=== PATIENT | male | born 1965 | race Two or more races ===

== ENCOUNTER 2024-04-21 17:17 | Emergency (ER) | payer MEDICAID, OTHER ==
--- NOTE | 2024-04-21 17:25 | ED.PDOC ---
GI ASSESSMENT HPI Comments 58 year old male presents to the ED with chief complaint of abdominal pain. Patient reports that he has been experiencing epigastric abdominal pain with associated diarrhea for the past 3 days. Patient denies any nausea, vomiting, fever, hematemesis, dysuria, flank pain, or melena. Time Seen by MD: 17:22 Reviewed Notes: Nurses Notes, Medications, Allergies Allergies: Coded Allergies: NO KNOWN ALLERGIES (Unverified , 04/21/24) Home Meds Active Scripts Ondansetron Odt 4MG Tab (ZOFRAN PO) 4 Mg Tb, 4 MG PO Q8HP PRN for 5 Days, #15 TAB ODT TAB-DISSOLVE IN MOUTH, THEN SWALLOW Prov:ALLISON WU MD 04/21/24 Information Source: Patient Mode of Arrival: Ambulatory Timing: Days Duration: Since onset Prehospital treatment: None Quality: Aching Vomitus: None Stool: Watery Severity: Moderate Recent: None Recent Hx of: None Pain Location: Epigastric Modifying Factors: Nothing Associated sign and symptoms: Diarrhea, Abdominal Pain Past Medical History PAST MEDICAL HISTORY: Denies Surgical History: Denies all surgeries Family History Family History: Reviewed,noncontributory to illness Social History Smoker: Non-Smoker Alcohol: Occasionally Drugs: Denies Drug Use Lives In: Home Constitutional: denies: chills, diaphoresis, fatigue, fever, malaise, sweats, w eakness, others EENTM: denies: blurred vision, double vision, ear bleeding, ear discharge, ear drainage, ear pain, ear ringing, eye pain, eye redness, hearing loss, mouth pain, mouth swelling, nasal discharge, nose bleeding, nose congestion, nose pain, photophobia, tearing, throat pain, throat swelling, voice changes, others Respiratory: denies: cough, hemoptysis, orthopnea, SOB at rest, shortness of breath, SOB with excertion, stridor, wheezing, others Cardiovascular: denies: chest pain, dizzy spells, diaphoresis, Dyspnea on exertion, edema, irregular heart beat, left arm pain, lightheadedness, palpitations, PND, syncope, others Gastrointestinal: reports: abdominal pain, diarrhea; denies: abdomen distended, blood streaked bowels, constipated, dysphagia, difficulty swallowing, hematemesis, melena, nausea, poor appetite, poor fluid intake, rectal bleeding, rectal pain, vomiting, others Genitourinary: denies: burning, dysuria, flank pain, frequency, hematuria, incontinence, penile discharge, penile sore, pain, testicle pain, testicle swelling, urgency, others Neurological: denies: dizziness, fainting, headache, left sided numbness, left sided weakness, numbness, paresthesia, pre-existing deficit, right sided numbness, right sided weakness, seizure, speech problems, tingling, tremors, weakness, others Musculoskeletal: denies: back pain, gout, joint pain, joint swelling, muscle pain, muscle stiffness, neck pain, others Integumetry: denies: bruises, change in color, change in hair/nails, dryness, laceration, lesions, lumps, rash, wounds, others Allergic/Immunocompromised: denies: Difficulty Healing, Frequent Infections, Hives, Itching, others Hematologic/Lymphatic: denies: anemia, blood clots, easy bleeding, easy bruising, swollen glands, others Endocrine: denies: excessive hunger, excessive sweating, excessive thirst, excessive urination, flushing, intolerance to cold, intolerance to heat, unexplained weight gain, unexplained weight loss, others Psychiatric: denies: anxiety, bipolar disorder, depression, hopeless, panic disorder, schizophrenia, sleepless, suicidal, others All Other Systems: Reviewed and Negative Physical Exam General Appearance: No Apparent Distress HEENT: Normal ENT Inspection, Pharynx Normal, TMs Normal Neck: Full Range of Motion, Non-Tender, Normal, Normal Inspection Respiratory: Chest Non-Tender, Lungs Clear, No Accessory Muscle Use, No Respiratory Distress, Normal Breath Sounds Cardiovascular: No Edema, No JVD, No Murmur, No Gallop, Normal Peripheral Pulses, Regular Rate/Rhythm Breast Exam: Deferred Gastrointestinal: No Organomegaly, Non Tender, No Pulsatile Mass, Normal Bowel Sounds, Soft Genitalia: Deferred Pelvic: Deferred Rectal: Deferred Extremities: No calf tenderness, Normal capillary refill, Normal inspection, Normal range of motion, Non-tender, No pedal edema Musculoskeletal : Apperance: Normal 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 Was a procedure done?: No GI differential Dx Differential Diagnosis: Gastritis/PUD, Gastroenteritis, Electrolyte Imbalance, Food Poisoning X-Ray, Labs, Meds, VS Vital Signs Date Time Temp Pulse Resp B/P (MAP) Pulse Ox O2 Delivery O2 Flow Rate FiO2 04/21/24 17:17 97.9 64 20 133/87 (102) 97 Lab Test 04/21/24 17:43 04/21/24 17:30 Range/Units White Blood Count 4.3 L 4.4-10.8 10^3/uL Red Blood Count 4.73 4.5-5.90 10^6/uL Hemoglobin 16.2 13.5-17.5 g/dL Hematocrit 46.9 41.0-53.0 % Mean Corpuscular Volume 99.1 80.0-100.0 fL Mean Corpuscular Hemoglobin 34.3 H 28.0-32.0 pg Mean Corpuscular Hemoglobin Concent 34.6 32.0-36.0 g/dL Red Cell Distribution Width 13.2 11.8-14.3 % Platelet Count 211 140-450 10^3/uL Mean Platelet Volume 6.6 L 6.9-10.8 fL Neutrophils (%) (Auto) 39.1 37.0-80.0 % Lymphocytes (%) (Auto) 42.3 10.0-50.0 % Monocytes (%) (Auto) 13.2 H 0.0-12.0 % Eosinophils (%) (Auto) 4.5 0.0-7.0 % Basophils (%) (Auto) 0.9 0.0-2.0 % Neutrophils # (Auto) 1.7 1.6-8.6 10 ^3/uL Lymphocytes # (Auto) 1.8 0.4-5.4 10 ^3/uL Monocytes # (Auto) 0.6 0-1.3 10 ^3/uL Eosinophils # (Auto) 0.2 0-0.8 10 ^3/uL Basophils # (Auto) 0 0-0.2 10 ^3/uL Nucleated Red Blood Cells 0.3 % Sodium Level 138 136-145 mmol/L Potassium Level 3.5 3.5-5.1 mmol/L Chloride Level 101 98-107 mmol/L Carbon Dioxide Level 28 20-31 mmol/L Anion Gap 9 5-15 Blood Urea Nitrogen 10 9-23 mg/dL Creatinine 1.03 0.700-1.30 mg/dL Glomerular Filtration Rate Calc 85 >90 mL/min BUN/Creatinine Ratio 9.7 L 10.0-20.0 Serum Glucose 91 74-106 mg/dL Calcium Level 9.5 8.7-10.4 mg/dL Total Bilirubin Pending Aspartate Amino Transferase (AST) 50 H 13-40 U/L Alanine Aminotransferase (ALT) 69 H 7-40 U/L Alkaline Phosphatase 102 46-116 U/L Total Protein 7.1 5.7-8.2 g/dL Albumin 4.5 3.2-4.8 g/dL Urine Color Yellow Yellow Urine Clarity Clear Clear Urine pH 5.5 5.0-9.0 Urine Specific Loa 1.021 1.001-1.035 Urine Protein Negative Negative Urine Ketones Negative Negative Urine Blood Negative Negative /uL Urine Nitrite Negative Negative Urine Bilirubin Negative Negative Urine Urobilinogen Normal Negative mg/dL Urine Leukocyte Esterase Negative Negative /uL Urine RBC 1 0 - 3 /hpf Urine Microscopic WBC 1 0-3 /HPF Urine Squamous Epithelial Cells Few <5 /hpf Urine Bacteria None seen None Seen /hpf Urine Mucus Few None Seen Urine Glucose Normal Normal mg/dL CT Abd/Pel indicates: 1. No acute abdominal or pelvic findings. Punctate nonobstructive right renal calculus. Right renal cysts. Diffuse hepatic steatosis. The urine test is negative The CBC and chemistry panel are within normal limits The patient was being discharged The patient will follow up with the primary care doctor The patient was given a prescription of Zofran Images Reviewed?: Images reviewed and evaluated by me Time of 1ST Reevaluation: 18:56 Reevaluation 1ST: Unchanged Patient Education/Counseling: Diagnosis, Treatment Family Education/Counseling: Diagnosis, Treatment Additional Information -Reviewed patient's previous visit(s): None - The following tests were ordered, and results were reviewed by me: CT Abd/Pel, CBC, CMP, UA - Additional information was gathered from interviewing the following i parvinpendent Historian: None - I reviewed and agreed with the following test results read by other provider: CT Abd/Pel - I discussed treatments and results with medical personnel and: patient Comprehensive systems review obtained and negative except for what is stated in the HPI. Departure 1 Departure Time of Disposition: 18:55 Impression: Primary Impression: Viral syndrome Disposition: 01 HOME / SELF CARE / HOMELESS Condition: Fair e-Prescriptions Ondansetron Odt 4MG Tab (ZOFRAN PO) 4 Mg Tb 4 MG PO Q8HP PRN for 5 Days, #15 TAB ODT TAB-DISSOLVE IN MOUTH, THEN SWALLOW Prov: ALLISON WU MD 04/21/24 Discharged With: Self Critical Care Note Critical Care Time?: No Stability Stability form required: No Heart Score Heart Score: Heart Score Response (Comments) Value History N/A 0 EKG N/A 0 Age N/A 0 Risk Factors N/A 0 Troponin N/A 0 Total 0 I personally scribed for ALLISON WU MD ([email or web address]) on 04/21/24 at 17:25. Electronically submitted by Clark Bolaños ([email or web address]). I personally scribed for ALLISON WU MD ([email or web address]) on 04/21/24 at 18:35. Electronically submitted by Clark Bolaños ([email or web address]). ALLISON WU MD Apr 21, 2024 17:25
[2024-04-21 17:39] LABS: Urine Bacteria None Seen /hpf (None Seen)
[2024-04-21 17:54] LABS: Urine Blood Negative /uL (Negative); Urine Clarity Clear (Clear); Urine Color Yellow (Yellow); Urine Mucus FEW (None Seen); Urine Protein, UAD Negative (Negative); Urine Specific Gravity 1.021 (1.001-1.035); Urine Squamous Epithelial Cell FEW /hpf (<5); Urine Urobilinogen Normal (Negative); Urine WBC 1 /HPF (0-3); Urine pH 5.5 (5.0-9.0)
--- NOTE | 2024-04-21 17:56 | DVH ---
Exam: CT CT AB PEL WO CON-NO ORAL OR IV History: pain Comparison Study: None Technique: Multidetector spiral CT of the abdomen and pelvis was performed from lung bases to pubic symphysis. Imaging was performed without IV contrast. Axial, coronal and sagittal multiplanar reform ats were obtained from the axial data set by the technologist. Radiation dose : Abdomen/Pelvis: CTDIvol 17 mGy, DLP 1025 mGy*cm. Findings: Evaluation of solid organs is limited due to lack of intravenous contrast use. Lung Bases: No acute or significant lung base finding. Normal heart size. No pleural or pericardial effusion. Liver: Diffuse hepatic steatosis. Gallbladder and biliary Tree: Unremarkable Spleen: Unremarkable Pancreas: The pancreas is grossly normal in appearance. Adrenal Glands: Unremarkable Kidneys: Right renal cyst. Punctate right renal calculus. No hydronephrosis. Bladder: Grossly unremarkable for degree of distention. Bowel: The stomach is grossly normal in appearance. Small bowel and colon are normal in caliber and d istribution. Normal appendix is visualized in the right lower quadrant without findings of appendicit is. Ascites: Absent Lymphadenopathy: No mesenteric, retroperitoneal or periportal lymphadenopathy. Abdominal wall and Mesentery: Unremarkable. Vasculature: The visualized abdominal aorta is normal in size and caliber. Evaluation of abdominal a nd pelvic vessels is limited due to lack of intravenous contrast. Pelvic Organs: Unremarkable Musculoskeletal: No aggressive focal bony lesions, acute fractures or dislocation. IMPRESSION: 1. No acute abdominal or pelvic findings. Punctate nonobstructive right renal calculus. Right renal cysts. Diffuse hepatic steatosis. Radiation optimization: All CT scans at this facility use at least one of these dose optimization teagan hniques: Automated exposure control mA and/or kV adjustment per patient size (includes targeted exams where dose is matched to clinical indication) or iterative reconstruction. HS:Y
[2024-04-21 18:40] LABS: Basophils # (auto) 0 10 ^3/uL (0-0.2); Basophils % (auto) 0.9 % (0.0-2.0); Eosinophils # (auto) 0.2 10 ^3/uL (0-0.8); Eosinophils % (auto) 4.5 % (0.0-7.0); Hematocrit 46.9 % (41.0-53.0); Hemoglobin 16.2 g/dL (13.5-17.5); Lymphocytes # (auto) 1.8 10 ^3/uL (0.4-5.4); Lymphocytes % (auto) 42.3 % (10.0-50.0); Mean Corpuscular Hemoglobin 34.3 pg (28.0-32.0); Mean Corpuscular Hgb Conc. 34.6 g/dL (32.0-36.0); Mean Corpuscular Volume 99.1 fL (80.0-100.0); Monocytes # (auto) 0.6 10 ^3/uL (0-1.3); Monocytes % (auto) 13.2 % (0.0-12.0); Neutrophils # (auto) 1.7 10 ^3/uL (1.6-8.6); Neutrophils % (auto) 39.1 % (37.0-80.0); Nucleated Red Blood Cells % 0.3 %; Platelet Count (auto) 211 10^3/uL (140-450); Red Blood Cells 4.73 10^6/uL (4.5-5.90); Red Cell Distribution Width 13.2 % (11.8-14.3); White Blood Cell 4.3 10^3/uL (4.4-10.8)
[2024-04-21 18:54] LABS: Alanine Aminotransferase 69 U/L (7-40); Albumin 4.5 g/dL (3.2-4.8); Alkaline Phosphatase 102 U/L (46-116); Anion Gap 9 (5-15); Aspartate Aminotransferase 50 U/L (13-40); BUN/Creatinine Ratio 9.7 (10.0-20.0); Blood Urea Nitrogen 10 mg/dL (9-23); Calcium 9.5 mg/dL (8.7-10.4); Carbon Dioxide 28 mmol/L (20-31); Chloride 101 mmol/L (98-107); Glucose 91 mg/dL (74-106); Potassium 3.5 mmol/L (3.5-5.1); Sodium 138 mmol/L (136-145); Total Protein 7.1 g/dL (5.7-8.2)
[2024-04-21 18:55] LABS: Bilirubin, Total 0.6 mg/dL (0.2-1.0)
[2024-04-21] MEDS ORDERED: ZOFR4T PO (18:55)
[2024-04-21 19:42] VITALS: BP 132/71; TEMP 98.7
[2024-04-21 19:53] VITALS: PULSE 60; RESP 17; O2SAT 100
== END 2024-04-21 19:59 | disposition home or self-care (01) ==
LOC: ER 17:28
DX: B34.9 Viral infection, unspecified (principal)
CPT/HCPCS: 36415; 74176; 80053; 81001; 85025

== ENCOUNTER 2024-10-11 06:34 | Emergency (ER) | payer SELFPAY ==
[~2024-10-11] VITALS: Ht 167.6 cm; Wt 100.1 kg
[~2024-10-11 06:34] MED LIST: ZOFR4T PO
--- NOTE | 2024-10-11 07:29 | ED.PDOC ---
Miguel. trauma (HPI) HPI Comments 59 y/o M, with no prior medical history presents to the ED for CC of back pain. Patient states, he has been experiencing lower lumbar back pain following a trip and fall while carrying a door on Saturday (10/09/24). Patient reports, pain to be a 10/10 and to worsen with ambulation. Patient denies head injury, loss of consciousness, nausea, vomiting, or headache. No other symptoms or modifying factors are present at this time. Chief Complaint: Back Pain Time Seen by MD: 07:15 Primary Care Provider: NONE Reviewed notes: Nurses Notes, Medications, Allergies Allergies: Coded Allergies: NO KNOWN ALLERGIES (Unverified , 04/21/24) Home Meds Active Scripts Ondansetron Odt 4MG Tab (ZOFRAN PO) 4 Mg Tb, 4 MG PO Q8HP PRN for 5 Days, #15 TAB ODT TAB-DISSOLVE IN MOUTH, THEN SWALLOW Prov:ALLISON WU MD 04/21/24 Information Source: Patient Mode of Arrival: Ambulatory Severity: Moderate Timing: Days Duration: Since onset Prehospital treatment: None Location: Back Location of laceration: None Mechanism: Fall Associated signs and symtoms: None Past Medical History PAST MEDICAL HISTORY: Denies Surgical History: Denies all surgeries Family History Family History: Reviewed,noncontributory to illness Social History Smoker: Non-Smoker Alcohol: Occasionally Drugs: Denies Drug Use Lives In: Home Constitutional: denies: chills, diaphoresis, fatigue, fever, malaise, sweats, weakness, others EENTM: denies: blurred vision, double vision, ear bleeding, ear discharge, ear drainage, ear pain, ear ringing, eye pain, eye redness, hearing loss, mouth pain, mouth swelling, nasal discharge, nose bleeding, nose congestion, nose pain, photophobia, tearing, throat pain, throat swelling, voice changes, others Respiratory: denies: cough, hemoptysis, orthopnea, SOB at rest, shortness of breath, SOB with excertion, stridor, wheezing, others Cardiovascular: denies: chest pain, dizzy spells, diaphoresis, Dyspnea on exertion, edema, irregular heart beat, left arm pain, lightheadedness, palpit ations, PND, syncope, others Gastrointestinal: denies: abdomen distended, abdominal pain, blood streaked b owels, constipated, diarrhea, dysphagia, difficulty swallowing, hematemesis, melena, nausea, poor appetite, poor fluid intake, rectal bleeding, rectal pain, vomiting, others Genitourinary: denies: burning, dysuria, flank pain, frequency, hematuria, incontinence, penile discharge, penile sore, pain, testicle pain, testicle swelling, urgency, others Neurological: denies: dizziness, fainting, headache, left sided numbness, left sided weakness, numbness, paresthesia, pre-existing deficit, right sided numbness, right sided weakness, seizure, speech problems, tingling, tremors, weakness, others Musculoskeletal: reports: back pain; denies: gout, joint pain, joint swelling, muscle pain, muscle stiffness, neck pain, others Integumetry: denies: bruises, change in color, change in hair/nails, dryness, laceration, lesions, lumps, rash, wounds, others Allergic/Immunocompromised: denies: Difficulty Healing, Frequent Infections, Hives, Itching, others Hematologic/Lymphatic: denies: anemia, blood clots, easy bleeding, easy bruising, swollen glands, others Endocrine: denies: excessive hunger, excessive sweating, excessive thirst, excessive urination, flushing, intolerance to cold, intolerance to heat, unexplained weight gain, unexplained weight loss, others Psychiatric: denies: anxiety, bipolar disorder, depression, hopeless, panic di sorder, schizophrenia, sleepless, suicidal, others All Other Systems: Reviewed and Negative Physical Exam General Appearance: Moderate Distress HEENT: Normal ENT Inspection, Pharynx Normal, TMs Normal Neck: Full Range of Motion, Non-Tender, Normal, Normal Inspection Respiratory: Chest Non-Tender, Lungs Clear, No Accessory Muscle Use, No Respiratory Distress, Normal Breath Sounds Cardiovascular: No Edema, No JVD, No Murmur, No Gallop, Normal Peripheral Pulses, Regular Rate/Rhythm Breast Exam: Deferred Gastrointestinal: No Organomegaly, Non Tender, No Pulsatile Mass, Normal Bowel Sounds, Soft Genitalia: Deferred Pelvic: Deferred Rectal: Deferred Extremities: No calf tenderness, Normal capillary refill, Normal inspection, Normal range of motion, Non-tender, No pedal edema Musculoskeletal : Apperance: Normal 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 Was a procedure done?: No Differential Diagnosis Multiple Trauma: Fractures, Spine Injury, Other (musculoskeletal pain, strain) X-Ray, Labs, Meds, VS Vital Signs Date Time Temp Pulse Resp B/P (MAP) Pulse Ox O2 Delivery O2 Flow Rate FiO2 10/11/24 09:31 58 16 97 Room Air 10/11/24 09:31 97.9 58 16 138/82 (100) 98 97.9 10/11/24 06:47 98.4 63 18 135/91 94 98.4 Current Medications Medications (Trade) Dose Ordered Sig/Audrey Route Start Time Stop Time Status Last Admin Ketorolac Tromethamine (Toradol Injection) 60 mg ONCE ONCE IM 10/11/24 07:45 10/11/24 07:46 DC 10/11/24 07:49 Patient alert. Complaining of back pain. Happened after lifting heavy object. Vitals stable. Answering questions. Lumbar spine x-ray reviewed does not show any acute changes. Was given Toradol. Ambulating. Was given prescription of Motrin. Explained to the patient. Was told to follow up with his primary care physician. Was told to come back if there is any problem. Time of 1ST Reevaluation: 07:45 Reevaluation 1ST: Unchanged Patient Education/Counseling: Diagnosis, Treatment Family Education/Counseling: No Family Present Departure 1 Departure Time of Disposition: 09:35 Impression: Primary Impression: Musculoskeletal pain Additional Impression: Lumbar sprain Qualified Codes: S33.5XXA - Sprain of ligaments of lumbar spine, initial encounter Disposition: HOME / SELF CARE / HOMELESS Condition: Good e-Prescriptions Ibuprofen Micronized (MOTRIN TABLET) 600 Mg Tb 600 MG PO TID PRN for 5 Days, #15 TAB *Black box warning-NSAIDS can increase risk of HI & hypertension, GI irritation, ulceration, bleed, perferation. Do not use post cardiac surgery. Use short duration/lowest effective dose. Prov: DEEPAK WEBER MD 10/11/24 Discharged With: Self Critical Care Note Critical Care Time?: No Stability Stability form required: No Heart Score Heart Score: Heart Score Response (Comments) Value History N/A 0 EKG N/A 0 Age N/A 0 Risk Factors N/A 0 Troponin N/A 0 Total 0 I personally scribed for DEEPAK WEBER MD ([email or web address]) on 10/11/24 at 07:29. Electronically submitted by Penelope Theodore ([email or web address]). DEEPAK WEBER MD Oct 11, 2024 07:29
[2024-10-11] MEDS: KETOROLAC TROMETH 60MG/2ML VIAL IM ONE (07:49)
--- NOTE | 2024-10-11 09:19 | DVH ---
XY LUMBAR SPINE 3 VIEW, HISTORY: fall COMPARISON: None TECHNICAL DATA: Frontal and lateral views were obtained of the lumbar spine . FINDINGS: There are 5 lumbar type vertebral bodies. Lumbar curvature is within normal limits. There is no spond ylolisthesis. Vertebral body heights are maintained. Disk heights are narrow. The facet joints appear normal. The sacroiliac joints are symmetric. Paraspinal soft tissues are within normal limits. IMPRESSION: No acute fracture or dislocation of the lumbar spine.
[2024-10-11 09:31] VITALS: BP 138/82; PULSE 58; RESP 16; TEMP 97.9; O2SAT 97
[2024-10-11] MEDS ORDERED: IBU600T PO (09:36)
== END 2024-10-11 09:40 | disposition home or self-care (01) ==
LOC: ER 06:34
DX: S33.5XXA Sprain of ligaments of lumbar spine, initial encounter (principal); F10.90 Alcohol use, unspecified, uncomplicated; Z79.899 Other long term (current) drug therapy; W01.0XXA Fall on same level from slipping, tripping and stumbling without subsequent striking against object, initial encounter; Y93.89 Activity, other specified; Y92.89 Other specified places as the place of occurrence of the external cause; Y99.8 Other external cause status; Y90.9 Presence of alcohol in blood, level not specified
CPT/HCPCS: 72100; 96372; 99283; J1885

== ENCOUNTER 2024-12-06 23:05 | Emergency (ER) | payer MEDICAID, OTHER ==
[~2024-12-06] VITALS: Ht 167.6 cm; Wt 101.0 kg
[~2024-12-06 23:05] MED LIST changes: +IBU600T PO
--- NOTE | 2024-12-06 23:09 | ED.PDOC ---
History of Present Illness HPI Comments 59-year-old male who presents with chief complaint of nonradiating, periumbilical abdominal pain, nausea, vomiting, and chills. Patient rates pain at 10/10 in severity and reports no previous incident of similar symptoms in the past. No endorsed recent ailments, sick contact, travel, injuries, or further p ertinent history, with the exception of abdominal hernia surgery repair 2 years ago in [place], [place]. He denies having any bloody or bilious vomitus, diarrhea, constipation, urinary problems, or further acute symptoms at this time. REVIEW OF SYSTEMS: General: Chills, no fever, no fatigue HEENT: No sore throat, no earache, no congestion, no neck pain. Cardiac: No chest pain. No palpitations. Lungs: No shortness of breath, no cough. GI: Abdominal pain, nausea, vomiting, no diarrhea : No dysuria, frequency, or urgency. No hematuria. Musculoskeletal: No joint pain , no joint swelling, no extremity edema. Skin: No rash, no itching. Neuro: No headache, no dizziness, no weakness PHYSICAL EXAM: General: Awake, alert and oriented. No acute distress. Skin: Skin in warm, dry and intact. Appropriate color for ethnicity. HEENT: The head is normocephalic and atraumatic. Conjunctivae are clear without exudates or hemorrhage. Sclera is non-icteric. EOM are intact. No signs of nystagmus. Eyelids are normal in appearance without swelling or lesions. Oral mucosa is pink and moist Neck: The neck is supple with normal range of motion. No JVD. Cardiac: Heart rate and rhythm are normal. No murmurs, gallops, or rubs are auscultated. Respiratory: No signs of respiratory distress. Lung sounds are clear in all lobes bilaterally without rales, rhonchi, or wheezes. Abdominal: Draws abdominal tenderness, with distention. Abdomen is soft, no guarding or rigidity. Bowel sounds are present and normoactive in all four quadrants. Extremities: Upper and lower extremities are atraumatic in appearance without deformity or edema. Neurological: The patient is awake, alert and oriented to person, place, and time with normal speech. Speech is clear. There is no facial asymmetry. Psychiatric: Appropriate mood and affect. Good judgement and insight. Time Seen by MD: 23:10 Primary Care Provider: NONE Reviewed Notes: Nurses Notes, Medications, Allergies Allergies: Coded Allergies: NO KNOWN ALLERGIES (Unverified , 04/21/24) Home Meds Active Scripts Ibuprofen Micronized (MOTRIN TABLET) 600 Mg Tb, 600 MG PO TID PRN for 5 Days, #15 TAB *Black box warning-NSAIDS can increase risk of CT & hypertension, GI irritation, ulceration, bleed, perferation. Do not use post cardiac surgery. Use short duration/lowest effective dose. Prov:DEEPAK WEBER MD 10/11/24 Ondansetron Odt 4MG Tab (ZOFRAN PO) 4 Mg Tb, 4 MG PO Q8HP PRN for 5 Days, #15 TAB ODT TAB-DISSOLVE IN MOUTH, THEN SWALLOW Prov:ALLISON WU MD 04/21/24 Information Source: Patient Mode of Arrival: Ambulatory Severity: Moderate Timing: Hours Duration: Since onset Prehospital treatment: None Past Medical History PAST MEDICAL HISTORY: Denies Surgical History: Hernia Repair Family History Family History: Reviewed,noncontributory to illness Social History Smoker: Non-Smoker Alcohol: Occasionally Drugs: Denies Drug Use Lives In: Home Was a procedure done? Was a procedure done?: No Differential Dx Considerations may include: Differential diagnoses considered include: Abdominal aortic aneurysm, CT, esophageal rupture, intestinal obstruction, mesenteric ischemia, perforated viscus or solid organ rupture, CHF with hepatomegaly, pneumonia, abscess, appendicitis, biliary disease, diverticulitis, gastritis, gastroenteritis, hepatitis, hernia, inflammatory bowel disease, pancreatitis, peptic ulcer disease, urinary tract infection, ureteral colic, constipation, GERD, irritable syndrome, abdominal wall pain, nonspecific abdominal pain, herpes zoster, nephrolithiasis. X-Ray, Labs, Meds, VS Vital Signs Date Time Temp Pulse Resp B/P (MAP) Pulse Ox O2 Delivery O2 Flow Rate FiO2 12/07/24 02:37 64 18 124/79 (94) 94 12/07/24 01:32 66 16 136/91 12/07/24 01:15 98.3 66 16 136/91 (106) 97 98.3 12/06/24 23:17 74 12/06/24 23:07 99.0 76 20 122/90 89 99.0 Lab Test 12/07/24 02:42 12/07/24 01:01 12/07/24 00:22 12/07/24 00:01 Range/Units Lactic Acid Level Pending Troponin I High Sensitivity Pending 3 L </=54 ng/L Urine Color Light-yellow Yellow Urine Clarity Clear Clear Urine pH 8.5 5.0-9.0 Urine Specific [place] > 1.050 H 1.001-1.035 Urine Protein 1+ H Negative Urine Ketones Negative Negative Urine Blood Negative Negative /uL Urine Nitrite Negative Negative Urine Bilirubin Negative Negative Urine Urobilinogen Normal Negative mg/dL Urine Leukocyte Esterase Negative Negative /uL Urine RBC <1 0 - 3 /hpf Urine Microscopic WBC Pending Urine Squamous Epithelial Cells None seen <5 /hpf Urine Bacteria None seen None Seen /hpf Urine Glucose Normal Normal mg/dL Total Bilirubin 0.4 0.2-1.0 mg/dL Direct Bilirubin Pending Aspartate Amino Transferase (AST) 38 13-40 U/L Alanine Aminotransferase (ALT) 51 H 7-40 U/L Alkaline Phosphatase 123 H 46-116 U/L Total Protein 7.6 5.7-8.2 g/dL Albumin 4.5 3.2-4.8 g/dL Lipase 36 12-53 U/L Blood Gas Specimen Type Arterial Blood Gas Sample Site Right radial Blood Gas Patient Temperature 37.0 Arterial Blood Date Drawn [id number] Arterial Blood pH 7.441 7.350-7.450 Arterial Blood Partial Pressure CO2 38.3 35.0-48.0 mmHg Arterial Blood Partial Pressure O2 65.6 L 83.0-108.0 mmHg Arterial Blood HCO3 25.5 21.0-28.0 mmol/L Arterial Blood Oxygen Saturation 92.8 L 94.0-98.0 % Arterial Blood Base Excess 1.5 -2.0-3.0 mmol/L Arterial Blood Oxyhemoglobin 91.7 L 94.0-98.0 % Arterial Blood Carboxyhemoglobin 0.7 0.5-1.5 % Arterial Blood Methemoglobin 0.5 0.0-1.5 % Kunal Test Yes Blood Gas Total Hemoglobin 17.60 H 13.5-17.5 g/dL Blood Gas Liter Flow 1.00 Blood Gas Modality Nasal cannula Blood Gas Spontaneous Rate 22 FiO2 % 24.0 Test 12/06/24 23:47 Range/Units White Blood Count 6.8 4.4-10.8 10^3/uL Red Blood Count 5.04 4.5-5.90 10^6/uL Hemoglobin 17.4 13.5-17.5 g/dL Hematocrit 49.8 41.0-53.0 % Mean Corpuscular Volume 98.8 80.0-100.0 fL Mean Corpuscular Hemoglobin 34.5 H 28.0-32.0 pg Mean Corpuscular Hemoglobin Concent 34.9 32.0-36.0 g/dL Red Cell Distribution Width 13.4 11.8-14.3 % Platelet Count 263 140-450 10^3/uL Mean Platelet Volume 6.6 L 6.9-10.8 fL Neutrophils (%) (Auto) 47.0 37.0-80.0 % Lymphocytes (%) (Auto) 39.0 10.0-50.0 % Monocytes (%) (Auto) 7.7 0.0-12.0 % Eosinophils (%) (Auto) 5.2 0.0-7.0 % Basophils (%) (Auto) 1.1 0.0-2.0 % Neutrophils # (Auto) 3.2 1.6-8.6 10 ^3/uL Lymphocytes # (Auto) 2.6 0.4-5.4 10 ^3/uL Monocytes # (Auto) 0.5 0-1.3 10 ^3/uL Eosinophils # (Auto) 0.4 0-0.8 10 ^3/uL Basophils # (Auto) 0.1 0-0.2 10 ^3/uL Nucleated Red Blood Cells 0.1 % Sodium Level 141 136-145 mmol/L Potassium Level 3.9 3.5-5.1 mmol/L Chloride Level 101 98-107 mmol/L Carbon Dioxide Level 29 20-31 mmol/L Anion Gap 11 5-15 Blood Urea Nitrogen 13 9-23 mg/dL Creatinine 0.93 0.700-1.30 mg/dL Glomerular Filtration Rate Calc 96 >90 mL/min BUN/Creatinine Ratio 14.0 10.0-20.0 Serum Glucose 110 H 74-106 mg/dL Calcium Level 9.6 8.7-10.4 mg/dL Troponin I High Sensitivity 4 </=54 ng/L Current Medications Medications (Trade) Dose Ordered Sig/Audrey Route Start Time Stop Time Status Last Admin Hydromorphone HCl (Dilaudid Injection) 0.5 mg ONCE ONCE IV 12/07/24 01:15 12/07/24 01:16 DC 12/07/24 01:32 Ondansetron HCl (Zofran) 4 mg ONCE ONCE IV 12/07/24 01:15 12/07/24 01:16 DC 12/07/24 01:[address] [address] Ph: [phone] DIAGNOSTIC IMAGING Diagnostic Imaging Report : [id number] Signed PATIENT: JAJA CUEVAS ACCT: [id number] UNIT: [id number] : 1965 LOC: ER ROOM / BED: / AGE / SEX: 59 / M ADM STATUS: REG ER SERVICE 21 ORDERING PHYSICIAN: ROCIO SALEH MD PROCEDURE(s): CXR1 - CHEST XRAY 1 VIEW REASON: Shortness of breath, abdominal pain ORDER NUMBER(s): [id number], ACCESSION NUMBER(s): [id number] CHEST RADIOGRAPH Indication: Shortness of breath, abdominal pain Technique: 1 view Comparison: None FINDINGS: Lines and Tubes: None. Lungs/Pleura: Mild basilar scarring/atelectasis. No focal consolidation, pleural effusion or pneumothorax. Cardiomediastinum: Heart size within normal limits for technique. Other: No acute osseous abnormality. IMPRESSION: 1. No acute cardiopulmonary abnormality. ATED BY: EMELI TORRES MD DICTATED DATE/TIME: 12/06/242345 SIGNED BY: EMELI TORRES MD SIGNED DATE/TIME: 12/06/242345 CC: Time of 1ST Reevaluation: 23:08 Reevaluation 1ST: Unchanged Patient Education/Counseling: Need For Follow Up Family Education/Counseling: No Family Present SEPSIS Sepsis Screen Physician Orders Electrocardigram (12/06/24 23:15) Chest Xray 1 View (12/06/24 23:22) Troponin-I Hs (12/07/24 02:22) Abg W/ Co-Ox (12/06/24 23:22) Lactic Acid W/ Reflex Order (12/07/24 01:01) Lipase (12/07/24 01:01) Urinalysis (12/07/24 01:01) Hepatic Panel (12/07/24 01:01) Ct Ab Pel With Iv Con Only (12/07/24 02:04) Vital Signs Date Time Temp Pulse Resp B/P (MAP) Pulse Ox O2 Delivery O2 Flow Rate FiO2 12/07/24 02:37 64 18 124/79 (94) 94 12/07/24 01:32 66 16 136/91 12/07/24 01:15 98.3 66 16 136/91 (106) 97 98.3 12/06/24 23:17 74 12/06/24 23:07 99.0 76 20 122/90 89 99.0 Laboratory Tests Test 12/06/24 23:47 12/07/24 02:42 White Blood Count 6.8 10^3/uL (4.4-10.8) Lactic Acid Level Pending Medications Medications Dose Ordered Sig/Audrey Route Start Time Stop Time Status Last Admin Dose Admin Hydromorphone HCl 0.5 mg ONCE ONCE IV 12/07/24 01:15 12/07/24 01:16 DC 12/07/24 01:32 Ondansetron HCl 4 mg ONCE ONCE IV 12/07/24 01:15 12/07/24 01:16 DC 12/07/24 01:33 Departure 1 Departure Time of Disposition: 03:35 Impression: Primary Impression: Abdominal pain Disposition: HOME / SELF CARE / HOMELESS Condition: Stable Additional Instructions: INSTRUCCIONES DE BRANDI DE Urgencias Instrucciones: Francisca atentamente todas las instrucciones proporcionadas en r[place]. Aunque le hayan dado el brandi del Departamento de Emergencias, esto no significa que tenga un "certificado de buena carlos". [] Hoy no se de guzman realizado ningn diagnstico definitivo para keyanna sntomas. Es posible que ests en proceso de desarrollar karen enfermedad grave. Es por eso que debe regresar al servicio de urgencias sin falta si presenta algn sntoma nuevo o que empeora (especialmente si keyanna sntomas incluyen dolor en el pecho, dificultad para respirar, dolor abdominal, fiebre, dolor de yoni, confusin, dificultad para reanna o caminar). Sherice es muy importante que consulte a un mdico de atencin primaria dentro de los prximos 1 a 3 torres para realizar un seguimiento. Si no puede conseguir karen reyna, regrese al servicio de urgencias para karen nueva evaluacin. Gastroenteritis: Instrucciones de cuidado Descripcin general La gastroenteritis es karen enfermedad que puede causar nuseas, vmitos y diarrea. Puede ser causada por bacterias o virus. Probablemente empezar a sentirse mejor en kristyn o dos torres. Mientras tanto, descanse judy y asegrese de no deshidratarse. La deshidratacin ocurre cuando el cuerpo pierde demasiado lquido. El seguimiento es fundamental para reyes tratamiento y seguridad. Asegrese de programar y acudir a todas keyanna citas, y llame a reyes mdico si tiene algn problema. Tambin es recomendable estar al tanto de los resultados de keyanna pruebas y llevar karen lista de los medicamentos que valdo. Foreign Agent puedes cuidarte en casa? Si reyes mdico le recet antibiticos, tmelos segn las indicaciones. No los deje de meg solo porque se sienta mejor. Debe completar el tratamiento con antibiticos. Thalia abundante lquido para prevenir la deshidratacin. Elija agua y otros lqui dos lilliana hasta que se sienta mejor. Si padece alguna enfermedad renal, cardaca o heptica y debe limitar reyes consumo de lquidos, consulte a reyes mdico antes de aumentarlo. Thalia lquidos lentamente, en pequeas cantidades y con frecuencia, porque beber demasiado demasiado rpido puede provocar vmitos. Cuando tenga ganas de comer, empiece con pequeas cantidades. Evite las comidas picantes, calientes o con donnell grasa, y no thalia alcohol ni cafena nikhil kristyn o dos torres. No thalia leche ni coma helado hasta que se sienta mejor. Foreign Agent prevenir la intoxicacin alimentaria Mantenga keyanna melva y reyes cocina limpias. Lave las tablas de cortar y las encimeras frecuentemente con [place] y jabn. Considere usar aerosoles o toallitas desinfectantes en las encimeras. Mantenga calientes los alimentos calientes y fros los alimentos fros. No coma peri, aderezos, ensaladas u otros alimentos que hayan estado a temperatura ambiente nikhil ms de 2 horas. Use un termmetro para revisar reyes refrigerador. Debe estar entre 1 C y 4 C. Descongele las peri en el refrigerador o en el microondas, no en la encimera de la cocina. Cocine la carne hasta que est judy cocida. No coma huevos crudos ni salsas crudas elaboradas con huevos crudos. No te arriesgues. Si la comida parece o sabe en mal estado, trala. Tenga mucho cuidado al viajar. En algunos lugares, es posible que no quiera beber agua del grifo (ni siquiera cubitos de hielo) ni comer alimentos crudos. Cundo debes pedir ayuda? Llame al 911 en cualquier momento que considere que necesita atencin de emergencia. Por ejemplo, llame si: Te desmayaste (perdiste el conocimiento). Tienes un dolor intenso en el vientre. Vomitas uri o lo que parecen posos de caf. Keyanna heces son de color marrn o con donnell uri. Llame a reyes mdico ahora o busque atencin mdica inmediata si: Se siente mareado o aturdido, o scarlet si se pudiera desmayar. Tiene dificultad para respirar o respira ms rpido y orina muy poco. Tienes un dolor abdominal nuevo o peor. Tiene fiebre nueva o ms brandi. Tiene signos de deshidratacin, scarlet: Ojos secos y boca seca. Pasando slo un poco de orina. Sentir ms sed de lo habitual. Tiene nuseas o vmitos y no puede retener lquidos. No puede evacuar heces ni gases. Tiene uri nueva o ms uri en keyanna heces o keyanna heces son negras y con aspecto de alquitrn. Preste atencin a los cambios en reyes carlos y asegrese de comunicarse con reyes mdi co si: Tiene sntomas nuevos o peores. Ests perdiendo peso. No mejoras scarlet esperabas Crditos para la gastroenteritis: Instrucciones de cuidado Actualizado al: 2023 Autor: Personal de [facility] Junta de revisin clnica Toda la educacin de [facility] es revisada por un equipo que incluye mdicos, enfermeras, profesionales avanzados, dietistas registrados y otros profesionales de la carlos. Dieta blanda Alimentos que puedes comer Los alimentos que puedes comer en karen dieta blanda incluyen: Leche y otros productos lcteos, solo bajos en grasa o sin grasa Verduras cocidas, enlatadas o congeladas Ellie Frutas enlatadas, as scarlet pur de manzana, pltanos y melones. Jugos de frutas y jugos de vegetales (algunas personas, scarlet aquellas con ERGE, podran querer evitar los ctricos y el tomate) Panes, galletas y pastas elaborados con harina monique refinada Cereales refinados y calientes, scarlet la crema de william (cereal de harina) Peri magras y tiernas, scarlet aves, pescado martinez y mariscos que se cocinan al vapor, al horno o a la daniela sin grasa agregada. Mantequilla de man cremosa Pudn y natillas Galletas Ej y obleas de vainilla [place] y gelatina Huevos Tofu Sopa, especialmente caldo T dbil Alimentos que se deben evitar Algunos alimentos que quizs quieras evitar cuando ests siguiendo karen dieta blanda son: Alimentos lcteos grasos, scarlet crema batida o helado con alto contenido de grasa Quesos joel, scarlet el queso xavier o el roquefort Verduras crudas y ensaladas Verduras que pueden producir gases, scarlet el brcoli, el repollo y la coliflor. Lita secos Cereales integrales o de salvado Panes, galletas o pastas integrales Encurtidos, chucrut y otros alimentos fermentados Especias y condimentos joel, scarlet el pimiento picante y el ajo. Alimentos con mucho azcar Semillas y lita secos Peri y pescados muy condimentados, curados o ahumados Peri duras y fibrosas Alimentos fritos o grasosos Bebidas alcohlicas y bebidas con cafena. e-Prescriptions Ondansetron Odt 4MG Tab (ZOFRAN PO) 4 Mg Tb 4 MG PO TIDPRN PRN for 3 Days, #9 TAB ODT TAB-DISSOLVE IN MOUTH, THEN SWALLOW Prov: ROCIO SALEH MD 12/07/24 Comments MDM: 59-year-old male with abdominal pain. Pain improved after treatment in the emergency department. Labs and imaging results reviewed. Patient was offered admission for further treatment, observation and evaluation. Discussed risks, benefits and return precautions with the patient. The patient is declined admission and is requesting to be discharged home to follow up with the primary care provider as an outpatient. Extensive evaluation was performed in attempt to identify or rule out: (See differential diagnosis section) The following tests were ordered, and results were reviewed by me and discussed with patient: (See diagnostic results section) And agreed with the following test results read by other providers: Chest x-ray I reviewed the following notes from the pt's past medical encounters: October 11, 2024 encounter for back pain Decision regarding hospitalization or escalation of hospital level of care: Risks and benefits of admission for further treatment of patient's condition was considered however due to patient's stable condition patient will be discharged to follow up closely or return to care for worsening of condition or inability to follow up. Critical Care Note Critical Care Time?: No Stability Stability form required: No Heart Score Heart Score: Heart Score Response (Comments) Value History N/A 0 EKG N/A 0 Age N/A 0 Risk Factors N/A 0 Troponin N/A 0 Total 0 I personally scribed for ROCIO SALEH MD ([email or web address]) on 12/07/24 at 01:28. Electronically submitted by Sai Enciso ([email or web address]). ROCIO SALEH MD Dec 06, 2024 23:09
--- NOTE | 2024-12-06 23:48 | DVH ---
CHEST RADIOGRAPH Indication: Shortness of breath, abdominal pain Technique: 1 view Comparison: None FINDINGS: Lines and Tubes: None. Lungs/Pleura: Mild basilar scarring/atelectasis. No focal consolidation, pleural effusion or pneumoth orax. Cardiomediastinum: Heart size within normal limits for technique. Other: No acute osseous abnormality. IMPRESSION: 1. No acute cardiopulmonary abnormality.
[2024-12-07 00:11] LABS: Hemoglobin 17.4 g/dL (13.5-17.5)
[2024-12-07 00:12] LABS: Hematocrit 49.8 % (41.0-53.0); Mean Corpuscular Hemoglobin 34.5 pg (28.0-32.0); Mean Corpuscular Volume 98.8 fL (80.0-100.0); Nucleated Red Blood Cells % 0.1 %
[2024-12-07 00:17] LABS: Base Excess 1.5 mmol/L (-2.0-3.0)
[2024-12-07 00:18] LABS: Chloride 101 mmol/L (98-107); Potassium 3.9 mmol/L (3.5-5.1); Sodium 141 mmol/L (136-145)
[2024-12-07 00:19] LABS: Anion Gap 11 (5-15); Carbon Dioxide 29 mmol/L (20-31)
[2024-12-07 00:20] LABS: Calcium 9.6 mg/dL (8.7-10.4)
[2024-12-07 00:25] LABS: BUN/Creatinine Ratio 14.0 (10.0-20.0); Blood Urea Nitrogen 13 mg/dL (9-23)
[2024-12-07 00:26] LABS: Glucose 110 mg/dL (74-106)
[2024-12-07 01:15] VITALS: TEMP 98.3
[2024-12-07] MEDS: HYDROmorphone HCL 2 MG/ML VL/or syr IV ONE (01:32)
[2024-12-07] MEDS: ONDANSETRON HCL 4 MG/2 ML VIAL IV ONE (01:33)
[2024-12-07 01:50] LABS: Alanine Aminotransferase 51.0 U/L (7-40); Albumin 4.5 g/dL (3.2-4.8); Alkaline Phosphatase 123.0 U/L (46-116); Bilirubin, Total 0.4 mg/dL (0.2-1.0); Lipase 36.0 U/L (12-53); Total Protein 7.6 g/dL (5.7-8.2)
[2024-12-07] MEDS: IOHEXOL 300 MG/ML 100ML BOTTLE IJ ONE (02:15)
[2024-12-07 02:37] VITALS: O2SAT 94
--- NOTE | 2024-12-07 02:57 | DVH ---
Exam: CT CT AB PEL WITH IV CON ONLY History: abd pain , n/v COMPARISON: CT CT AB PEL WO CON-NO ORAL OR IV on DOS: 04/21/24 Technique: Multidetector spiral CT of the abdomen and pelvis was performed from lung bases to pubic s ymphysis. Intravenous contrast was administered during this examination. Portal venous imaging was o btained. Axial, coronal and sagittal multiplanar reformats were performed by the technologist on a [employer] workstation. Radiation Dose : 1. Abdomen/Pelvis: CTDIvol 22.3 mGy, DLP 1282.48 mGy*cm. CONTRAST: Type of contrast: Omnipaque 300 Contrast injected: 100 ml Findings: Lung Bases: No acute or significant lung base finding. Moderate bibasilar atelectasis. Cardiomegaly. No pleural or pericardial effusion. Liver: The liver is normal in size. Hepatic steatosis. No focal lesions. Normal hepatic vascular enha ncement. Gallbladder and Biliary Tree: Unremarkable Spleen: Unremarkable Pancreas: The pancreas is normal in appearance without focal lesions or abnormal enhancement. Adrenal Glands: Unremarkable Kidneys: No hydronephrosis. Right superior pole renal cortical cyst measures 3.6 cm. Bladder: Unremarkable Bowel: The stomach is distended and predominantly fluid-filled with air-fluid level noted. Moderately dilated fluid and gas-filled small bowel segments with associated air-fluid levels and mild diffuse wall thickening and enhancement, suggestive of sequelae of enteritis.. The appendix is normal. Ascites: Absent Lymphadenopathy: No mesenteric, retroperitoneal or periportal lymphadenopathy. Abdominal Wall and Mesentery: Unremarkable. Vasculature: The visualized abdominal aorta is normal in size and caliber. Abdominal and pelvic vess els demonstrate normal enhancement. Pelvic Organs: Unremarkable Musculoskeletal: No aggressive focal bony lesions, acute fractures or dislocation. IMPRESSION: 1. Moderately dilated fluid and gas-filled small bowel segments with associated air-fluid levels and mild diffuse wall thickening and enhancement, suggestive of sequelae of enteritis. 2. Hepatic steatosis. 3. Nonspecific gastric distention. 4. Cardiomegaly. Radiation optimization: All CT scans at this facility use at least one of these dose optimization teagan hniques: automated exposure control mA and/or kV adjustment per patient size (includes targeted exam s where dose is matched to clinical indication) or iterative reconstruction.
[2024-12-07 03:11] LABS: Urine Protein, UAD 1+ (Negative)
[2024-12-07 03:14] LABS: Bilirubin, Direct 0.1 mg/dL (<0.3)
[2024-12-07 03:33] VITALS: BP 124/79; PULSE 66; RESP 16
[2024-12-07] MEDS ORDERED: ZOFR4T PO (03:34)
--- NOTE | 2024-12-07 06:50 | ECG ---
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
== END 2024-12-07 03:45 | disposition home or self-care (01) ==
LOC: ER 23:05
DX: R10.33 Periumbilical pain (principal); F10.90 Alcohol use, unspecified, uncomplicated; Z79.899 Other long term (current) drug therapy; Z98.890 Other specified postprocedural states; Y90.9 Presence of alcohol in blood, level not specified
CPT/HCPCS: 36415; 36600; 71045; 74177; 80048; 80076; 81001; 82805; 83605; 83690; 84484; 85025; 93005; 96374; 96375; 99285; J1171; J2405; Q9967

== ENCOUNTER 2024-12-07 07:44 | Inpatient (IN) | payer MEDICAID, OTHER ==
[~2024-12-07] VITALS: Ht 167.6 cm; Wt 98.8 kg
[2024-12-07] MEDS: SODIUM CHLORIDE 0.9% 1,000 ML IVB ONE (08:25)
[2024-12-07 08:35] LABS: Hematocrit 49.3 % (41.0-53.0); Hemoglobin 16.8 g/dL (13.5-17.5); Mean Corpuscular Hemoglobin 33.8 pg (28.0-32.0); Mean Corpuscular Volume 99.0 fL (80.0-100.0); Nucleated Red Blood Cells % 0.1 %
--- NOTE | 2024-12-07 08:48 | ED.PDOC ---
GI ASSESSMENT HPI Comments 59 year old male presents to the ED with a chief complaint of abdominal pain onset last night. Patient was discharged from this ED earlier today, diagnosed with gastroenteritis. Patient states pain has not resolved, went home, pain worsened, returned to ED. He is currently experiencing abdominal pain, nausea, vomiting, and chills. Denies fever, headache, dizziness, chest pain, shortness of breath, hematemesis, dysuria, hematuria, melena, blood in stool. No other symptoms or modifying factors present at this time. Chief Complaint: Abdominal Pain Time Seen by MD: 08:35 Primary Care Provider: NONE Reviewed Notes: Medications, Allergies Allergies: Coded Allergies: NO KNOWN ALLERGIES (Unverified , 04/21/24) Home Meds Active Scripts Ondansetron Odt 4MG Tab (ZOFRAN PO) 4 Mg Tb, 4 MG PO TIDPRN PRN for 3 Days, #9 TAB ODT TAB-DISSOLVE IN MOUTH, THEN SWALLOW Prov:ROCIO SALEH MD 12/07/24 Ibuprofen Micronized (MOTRIN TABLET) 600 Mg Tb, 600 MG PO TID PRN for 5 Days, #15 TAB *Black box warning-NSAIDS can increase risk of MA & hypertension, GI irritation, ulceration, bleed, perferation. Do not use post cardiac surgery. Use short duration/lowest effective dose. Prov:DEEPAK WEBER MD 10/11/24 Ondansetron Odt 4MG Tab (ZOFRAN PO) 4 Mg Tb, 4 MG PO Q8HP PRN for 5 Days, #15 TAB ODT TAB-DISSOLVE IN MOUTH, THEN SWALLOW Prov:ALLISON WU MD 04/21/24 Information Source: Patient, Spouse Mode of Arrival: Ambulatory Timing: Hours Duration: Since onset Prehospital treatment: None Quality: Sharp Severity: Moderate Recent: None Recent Hx of: None Pain Location: Diffuse Modifying Factors: Nothing Associated sign and symptoms: Nausea, Vomiting, Abdominal Pain Past Medical History PAST MEDICAL HISTORY: Denies Surgical History: Hernia Repair Family History Family History: Reviewed,noncontributory to illness Social History Smoker: Non-Smoker Alcohol: Occasionally Drugs: Denies Drug Use Lives In: Home Constitutional: denies: chills, diaphoresis, fatigue, fever, malaise, sweats, weakness, others EENTM: denies: blurred vision, double vision, ear bleeding, ear discharge, ear drainage, ear pain, ear ringing, eye pain, eye redness, hearing loss, mouth pain, mouth swelling, nasal discharge, nose bleeding, nose congestion, nose pain, photophobia, tearing, throat pain, throat swelling, voice changes, others Respiratory: denies: cough, hemoptysis, orthopnea, SOB at rest, shortness of breath, SOB with excertion, stridor, wheezing, others Cardiovascular: denies: chest pain, dizzy spells, diaphoresis, Dyspnea on exertion, edema, irregular heart beat, left arm pain, lightheadedness, palpitations, PND, syncope, others Gastrointestinal: reports: abdominal pain, nausea, vomiting; denies: abdomen distended, blood streaked bowels, constipated, diarrhea, dysphagia, difficulty swallowing, hematemesis, melena, poor appetite, poor fluid intake, rectal bleeding, rectal pain, others Genitourinary: denies: burning, dysuria, flank pain, frequency, hematuria, incontinence, penile discharge, penile sore, pain, testicle pain, testicle swelling, urgency, others Neurological: denies: dizziness, fainting, headache, left sided numbness, left sided weakness, numbness, paresthesia, pre-existing deficit, right sided numbness, right sided weakness, seizure, speech problems, tingling, tremors, weakness, others Musculoskeletal: denies: back pain, gout, joint pain, joint swelling, muscle pain, muscle stiffness, neck pain, others Integumetry: denies: bruises, change in color, change in hair/nails, dryness, laceration, lesions, lumps, rash, wounds, others Allergic/Immunocompromised: denies: Difficulty Healing, Frequent Infections, Hives, Itching, others Hematologic/Lymphatic: denies: anemia, blood clots, easy bleeding, easy bruising, swollen glands, others Endocrine: denies: excessive hunger, excessive sweating, excessive thirst, excessive urination, flushing, intolerance to cold, intolerance to heat, unexplained weight gain, unexplained weight loss, others Psychiatric: denies: anxiety, bipolar disorder, depression, hopeless, panic disorder, schizophrenia, sleepless, suicidal, others All Other Systems: Reviewed and Negative Physical Exam General Appearance: Moderate Distress, Normal HEENT: Normal ENT Inspection, Pharynx Normal, TMs Normal Neck: Full Range of Motion, Non-Tender, Normal, Normal Inspection Respiratory: Chest Non-Tender, Lungs Clear, No Accessory Muscle Use, No Respiratory Distress, Normal Breath Sounds Cardiovascular: No Edema, No JVD, No Murmur, No Gallop, Normal Peripheral Pulses, Regular Rate/Rhythm Breast Exam: Deferred Gastrointestinal: Diffuse, No Organomegaly, No Pulsatile Mass, Normal Bowel Sounds, Soft Genitalia: Deferred Pelvic: Deferred Rectal: Deferred Extremities: No calf tenderness, Normal capillary refill, Normal inspection, Normal range of motion, Non-tender, No pedal edema Musculoskeletal : Apperance: Normal Neurologic: Alert, 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 Was a procedure done?: No GI differential Dx Differential Diagnosis: Constipation, Diverticular disease, Esophagitis, Gastritis/PUD, Gastroenteritis X-Ray, Labs, Meds, VS Vital Signs Date Time Temp Pulse Resp B/P (MAP) Pulse Ox O2 Delivery O2 Flow Rate FiO2 12/07/24 07:47 97.8 63 19 147/86 95 97.8 Lab Test 12/07/24 08:14 Range/Units White Blood Count 7.7 4.4-10.8 10^3/uL Red Blood Count 4.98 4.5-5.90 10^6/uL Hemoglobin 16.8 13.5-17.5 g/dL Hematocrit 49.3 41.0-53.0 % Mean Corpuscular Volume 99.0 80.0-100.0 fL Mean Corpuscular Hemoglobin 33.8 H 28.0-32.0 pg Mean Corpuscular Hemoglobin Concent 34.1 32.0-36.0 g/dL Red Cell Distribution Width 13.3 11.8-14.3 % Platelet Count 246 140-450 10^3/uL Mean Platelet Volume 6.5 L 6.9-10.8 fL Neutrophils (%) (Auto) 77.9 37.0-80.0 % Lymphocytes (%) (Auto) 16.9 10.0-50.0 % Monocytes (%) (Auto) 4.4 0.0-12.0 % Eosinophils (%) (Auto) 0.2 0.0-7.0 % Basophils (%) (Auto) 0.6 0.0-2.0 % Neutrophils # (Auto) 6.0 1.6-8.6 10 ^3/uL Lymphocytes # (Auto) 1.3 0.4-5.4 10 ^3/uL Monocytes # (Auto) 0.3 0-1.3 10 ^3/uL Eosinophils # (Auto) 0 0-0.8 10 ^3/uL Basophils # (Auto) 0 0-0.2 10 ^3/uL Nucleated Red Blood Cells 0.1 % Current Medications Medications (Trade) Dose Ordered Sig/Audrey Route Start Time Stop Time Status Last Admin Sodium Chloride 1,000 ml @ 1,000 mls/hr Q1H ONCE IVB 12/07/24 08:00 12/07/24 08:59 DC 12/07/24 08:25 Patient alert. Complaining of abdominal pain. Vitals stable. Answering all questions. WBC within normal limits. Reviewed his previous visit. CT scan from previous visit does show enteritis. Continues to have abdominal pain. Establish intravenous access. Was given fluids. Was given Flagyl. Explained to the patient. Continue to monitor. Time of 1ST Reevaluation: 09:05 Reevaluation 1ST: Unchanged Patient Education/Counseling: Diagnosis, Treatment, Prognosis Family Education/Counseling: Diagnosis, Treatment, Prognosis SEPSIS Sepsis Screen Date sepsis recognized/suspect: Dec 07, 2024 Time Sepsis recognized/suspect: 0749 Recent Procedure: No On Antibiotic Therapy: No Respiratory Rate >20: No Heart Rate >90: No Temp<36 C (96.8 F) or >38.3 C: No SBP <90 or MAP <65 mmHG: No New Acute Mental Status Change: No Is the patient on CPAP, BIPAP,: No Vital Signs Date Time Temp Pulse Resp B/P (MAP) Pulse Ox O2 Delivery O2 Flow Rate FiO2 12/07/24 07:47 97.8 63 19 147/86 95 97.8 Laboratory Tests Test 12/07/24 08:14 White Blood Count 7.7 10^3/uL (4.4-10.8) Medications Medications Dose Ordered Sig/Audrey Route Start Time Stop Time Status Last Admin Dose Admin Sodium Chloride 1,000 ml @ 1,000 mls/hr Q1H ONCE IVB 12/07/24 08:00 12/07/24 08:59 DC 12/07/24 08:25 Departure 1 Departure Time of Disposition: 09:07 Impression: Primary Impression: Acute abdominal pain Additional Impression: Gastroenteritis Disposition: ADMITTED INPATIENT Admit to: Med Surg Condition: Guarded Critical Care Note Critical Care Time?: Yes (90 min-critical care time only) Stability Stability form required: No Heart Score Heart Score: Heart Score Response (Comments) Value History N/A 0 EKG N/A 0 Age N/A 0 Risk Factors N/A 0 Troponin N/A 0 Total 0 I personally scribed for DEEPAK WEBER MD ([email or web address]) on 12/07/24 at 08:48. Electronically submitted by Lesvia Galindo ([email or web address]). DEEPAK WEBER MD Dec 07, 2024 08:48
[2024-12-07] MEDS: ONDANSETRON HCL 4 MG/2 ML VIAL IV ONE (09:40)
[2024-12-07] MEDS ORDERED: DOCUSATE SOD 100 MG CAP PO PRN (10:30)
[2024-12-07] MEDS ORDERED: MORPHINE SULFATE INJ 2 MG/ml SYRG IV PRN (10:30)
[2024-12-07] MEDS ORDERED: ONDANSETRON HCL 4 MG/2 ML VIAL IV PRN (10:30)
[2024-12-07] MEDS ORDERED: NITROGLYCERIN 0.4 MG SL TAB SL PRN (10:30)
[2024-12-07] MEDS ORDERED: ACETAMINOPHEN 325 MG TAB PO PRN (10:30)
[2024-12-07] MEDS ORDERED: LORazepam 2MG/ML-1ML VIAL IV PRN (10:45)
--- NOTE | 2024-12-07 10:45 | DVHHP2 ---
History of Present Illness Reason for Visit: Abdominal pain History of Present Illness Elmer Simon is a 59-year-old male with no significant past medical history who came to the hospital for abdominal pain. Patient states his abdominal pain began yesterday. He describes it as sharp pain with bloating and associated nausea and vomiting. Patient came to the ER yesterday for his abdominal pain. A CT of the abdomen was completed that showed enteritis. He was discharged home with PO antibiotics. He came back this morning due to the pain worsening. States he is having nausea and vomiting, but denies any diarrhea. Patient is a daily beer drinker, consuming about 3-4 beers/day. Past Surgical History: Hernia Repair, Other (right arm) Smoke: No ALCOHOL: heavy (3-4 beers/day) Drugs: None Lives: with Family Domestic Violence: Neg Review of Systems Constitutional: No: Fever, Chills, Sweats, Weakness, Malaise, Other Eyes: No: Pain, Vision change, Conjunctivae inflammation, Eyelid inflammation, Other, Redness ENT: No: Ear pain, Ear discharge, Nose pain, Nose discharge, Nose congestion, Mouth pain, Mouth swelling, Throat pain, Throat swelling, Other Respiratory: No: Cough, Dry, Shortness of breath, SOB with excertion, Wheezing, Hemoptysis, Pleuritic Pain, Sputum, Wheezing, Other Cardiovascular: No: Chest Pain, Palpitations, Orthopnea, Paroxysmal Noc. Dyspnea, Edema, Lt Headedness, Other Gastrointestinal: Nausea, Vomiting, Abdominal Pain; No: Diarrhea, Constipation, Melena, Hematochezia, Other Genitourinary: No Dysuria, No Frequency, No Incontinence, No Hematuria, No Retention, No Other Musculoskeletal: No: other, neck pain, shoulder pain, arm pain, back pain, hand pain, leg pain, foot pain Skin: No: Rash, Lesions, Jaundice, Bruising, Other Allergies: Coded Allergies: NO KNOWN ALLERGIES (Unverified , 04/21/24) Medications Current Medications Medications Dose Ordered Sig/Audrey Route Start Time Stop Time Status Last Admin Dose Admin Acetaminophen/ Hydrocodone Bitart 1 tab Q4HP PRN PO 12/07/24 10:30 UNV Ondansetron HCl 4 mg Q4HP PRN IV 12/07/24 10:30 UNV Docusate Sodium 100 mg BIDPRN PRN PO 12/07/24 10:30 UNV Acetaminophen 650 mg Q6HP PRN PO 12/07/24 10:30 UNV Nitroglycerin 0.4 mg Q5MINP PRN SL 12/07/24 10:30 UNV Morphine Sulfate 2 mg Q30M PRN IV 12/07/24 10:30 UNV Ceftriaxone Sodium 50 ml @ 100 mls/hr DAILY@09 IV 12/08/24 09:00 UNV Metronidazole 100 ml @ 100 mls/hr Q8HR IV 12/07/24 14:00 UNV Exam Vital Signs Vital Signs Date Time Temp Pulse Resp B/P (MAP) Pulse Ox O2 Delivery O2 Flow Rate FiO2 12/07/24 09:14 98.1 95 18 154/91 (112) 95 98.1 General Appearance: Alert, Oriented X3, Cooperative HEENT: Atraumatic, PERRLA, Other (Mucous memebr dry) Respiratory: Clear to auscultation, Normal air movement Cardiovascular: Regular rate, Normal S1, Normal S2 Abdominal: Normal bowel sounds, Soft, Other (abdominal tnederness) Extremities: No clubbing, No cyanosis, No edema, Normal pulses, No tenderness/swelling Skin: No rashes, No breakdown, No significant lesion Neuro: Normal gait, Normal speech, Strength at 5/5 X4 ext Psych/Mental Status: Mental status NL, Mood NL Labs/Xrays Labs Test 12/07/24 08:14 Range/Units White Blood Count 7.7 4.4-10.8 10^3/uL Red Blood Count 4.98 4.5-5.90 10^6/uL Hemoglobin 16.8 13.5-17.5 g/dL Hematocrit 49.3 41.0-53.0 % Mean Corpuscular Volume 99.0 80.0-100.0 fL Mean Corpuscular Hemoglobin 33.8 H 28.0-32.0 pg Mean Corpuscular Hemoglobin Concent 34.1 32.0-36.0 g/dL Red Cell Distribution Width 13.3 11.8-14.3 % Platelet Count 246 140-450 10^3/uL Mean Platelet Volume 6.5 L 6.9-10.8 fL Neutrophils (%) (Auto) 77.9 37.0-80.0 % Lymphocytes (%) (Auto) 16.9 10.0-50.0 % Monocytes (%) (Auto) 4.4 0.0-12.0 % Eosinophils (%) (Auto) 0.2 0.0-7.0 % Basophils (%) (Auto) 0.6 0.0-2.0 % Neutrophils # (Auto) 6.0 1.6-8.6 10 ^3/uL Lymphocytes # (Auto) 1.3 0.4-5.4 10 ^3/uL Monocytes # (Auto) 0.3 0-1.3 10 ^3/uL Eosinophils # (Auto) 0 0-0.8 10 ^3/uL Basophils # (Auto) 0 0-0.2 10 ^3/uL Nucleated Red Blood Cells 0.1 % Technique: Multidetector spiral CT of the abdomen and pelvis Findings: Lung Bases: No acute or significant lung base finding. Moderate bibasilar atelectasis. Cardiomegaly. No pleural or pericardial effusion. Liver: The liver is normal in size. Hepatic steatosis. No focal lesions. Normal hepatic vascular enhancement. Gallbladder and Biliary Tree: Unremarkable Spleen: Unremarkable Pancreas: The pancreas is normal in appearance without focal lesions or abnormal enhancement. Adrenal Glands: Unremarkable Kidneys: No hydronephrosis. Right superior pole renal cortical cyst measures 3.6 cm. Bladder: Unremarkable Bowel: The stomach is distended and predominantly fluid-filled with air-fluid level noted. Moderately dilated fluid and gas-filled small bowel segments with associated air-fluid levels and mild diffuse wall thickening and enhancement, suggestive of sequelae of enteritis.. The appendix is normal. Ascites: Absent Lymphadenopathy: No mesenteric, retroperitoneal or periportal lymphadenopathy. Abdominal Wall and Mesentery: Unremarkable. Vasculature: The visualized abdominal aorta is normal in size and caliber. Abdominal and pelvic vessels demonstrate normal enhancement. Pelvic Organs: Unremarkable Musculoskeletal: No aggressive focal bony lesions, acute fractures or dislocation. IMPRESSION: 1. Moderately dilated fluid and gas-filled small bowel segments with associated air-fluid levels and mild diffuse wall thickening and enhancement, suggestive of sequelae of enteritis. 2. Hepatic steatosis. 3. Nonspecific gastric distention. 4. Cardiomegaly. SEPSIS Sepsis Screen Date sepsis recognized/suspect: Dec 07, 2024 Time Sepsis recognized/suspect: 0749 Recent Procedure: No On Antibiotic Therapy: No Respiratory Rate >20: No Heart Rate >90: No Temp<36 C (96.8 F) or >38.3 C: No SBP <90 or MAP <65 mmHG: No New Acute Mental Status Change: No Is the patient on CPAP, BIPAP,: No Physician Orders Admit (12/07/24 10:17) Code Status (12/07/24 10:17) Hydrocodone-Acet 5/325mg Tab (Kidder 5/32 (12/07/24 10:30) Ondansetron Hcl (Zofran) (12/07/24 10:30) Docusate Sodium Capsule (Colace Capsule) (12/07/24 10:30) Complete Blood Count (12/08/24 04:00) Comprehensive Metabolic Panel (12/08/24 04:00) Condition: Serious (12/07/24 10:17) Acetaminophen Tablet (Tylenol Tablet) (12/07/24 10:30) Clear Liq Diet (12/07/24 Lunch) Nitroglycerin Sublingual (Ntrostat Subli (12/07/24 10:30) Morphine Sulfate Injection (12/07/24 10:30) Stat Ekg For Chest Pain (12/07/24 10:17) Notify Md Of Changes From Base (12/07/24 10:17) Chief Risk Officer For 24 Hours (12/07/24 10:17) Emergency Dysrhythmia Protocol (12/07/24 10:17) Rhythm Strips Once Every Shift (12/07/24 10:17) Oxygen By Nasal Cannula (12/07/24 10:17) Ceftriaxone 1gm/50ml (Rocephin) (12/08/24 09:00) Ceftriaxone 1gm/50ml (Rocephin) (12/07/24 10:30) Metronidazole 500mg/100ml (Flagyl 500mg/ (12/07/24 14:00) Sodium Chloride 0.9% (12/07/24 10:30) Sodium Chloride 0.9% (12/07/24 10:30) Vital Signs Date Time Temp Pulse Resp B/P (MAP) Pulse Ox O2 Delivery O2 Flow Rate FiO2 12/07/24 09:14 98.1 95 18 154/91 (112) 95 98.1 12/07/24 09:14 95 12/07/24 07:47 97.8 63 19 147/86 95 97.8 Laboratory Tests Test 12/07/24 08:14 White Blood Count 7.7 10^3/uL (4.4-10.8) Medications Medications Dose Ordered Sig/Audrey Route Start Time Stop Time Status Last Admin Dose Admin Metronidazole 100 ml @ 100 mls/hr ONCE ONCE IV 12/07/24 09:15 12/07/24 10:14 DC 12/07/24 09:40 100 MLS/HR Ondansetron HCl 4 mg ONCE ONCE IV 12/07/24 09:15 12/07/24 09:16 DC 12/07/24 09:40 4 MG Sodium Chloride 1,000 ml @ 1,000 mls/hr Q1H ONCE IVB 12/07/24 08:00 12/07/24 08:59 DC 12/07/24 08:25 1,000 MLS/HR Assessment/Plan Assessment/Plan Assessment: Gastroenteritis, Cardiomegaly, Hepatic steatosis, Transaminitis, ETOH dependance, Plan: Admit to Med-Surg, IV antibiotics, IV hydration, Consider GI consult if symptoms persist, Liver ultrasound, AM labs, Clear liquid diet, advance as tolerated, PO supplements for possible ETOH withdrawal, Plan discussed with: Patient My Orders Orders - 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 Procedure Category Date Status Time Admit ADMIT 12/07/24 Transmitted 10:17 Code Status CODE 12/07/24 Transmitted 10:17 Hydrocodone-Acet PHA 12/07/24 Logged 5/325mg Tab (Kidder 10:30 Ondansetron Hcl PHA 12/07/24 Logged (Zofran) 10:30 Docusate Sodium PHA 12/07/24 Logged Capsule (Colace 10:30 Complete Blood Count LAB 12/08/24 Verified 04:00 Comprehensive LAB 12/08/24 Verified Metabolic Panel 04:00 Condition: Serious JIMMY 12/07/24 In Process 10:17 Acetaminophen Tablet PHA 12/07/24 Logged (Tylenol Tablet) 10:30 Clear Liq Diet DIET 12/07/24 Transmitted Lunch Nitroglycerin PHA 12/07/24 Logged Sublingual (Ntrostat 10:30 Morphine Sulfate PHA 12/07/24 Logged Injection 10:30 Stat Ekg For Chest JIMMY 12/07/24 In Process Pain 10:17 Notify Of Changes JIMMY 12/07/24 In Process From Base 10:17 Chief Risk Officer For JIMMY 12/07/24 In Process 24 Hours 10:17 Emergency Dysrhythmia JIMMY 12/07/24 In Process Protocol 10:17 Rhythm Strips Once JIMMY 12/07/24 In Process Every Shift 10:17 Oxygen By Nasal RT 12/07/24 Transmitted Cannula 10:17 Ceftriaxone 1gm/50ml PHA 12/08/24 Logged (Rocephin) 09:00 Ceftriaxone 1gm/50ml PHA 12/07/24 Logged (Rocephin) 10:30 Metronidazole PHA 12/07/24 Logged 500mg/100ml (Flagyl 14:00 Sodium Chloride 0.9% PHA 12/07/24 Logged 10:30 Sodium Chloride 0.9% PHA 12/07/24 Logged 10:30 Date of Service: Dec 07, 2024 Billing Provider: CARMEN LEWIS Common Visit Codes: [id number] INP/OBS CARE (MOD) CARMEN LEWIS Dec 07, 2024 10:45
--- NOTE | 2024-12-07 11:38 | DVH ---
INDICATION: Hepatic steatosis. TECHNIQUE: Multiple real-time sonographic images were obtained of the right upper quadrant. COMPARISON: None FINDINGS: The liver demonstrates heterogeneous echotexture without focal mass lesions. The liver dann ures 17 cm. There is no intrahepatic or extrahepatic ductal dilatation. CBD not visualized The gallbladder is without evidence of stone or sludge. The gallbladder wall measures 0.2mm and is within normal limits. The right kidney measures 11 cm. The right kidney is normal in contour, size, and shape. The echog enicity is normal. There is no hydronephrosis. Left kidney measures 13 cm. The pancreas is not well visualized due to overlying bowel gas. IMPRESSION: No sonographic evidence of gallstones or acute cholecystitis. Hepatic steatosis with focal fatty sparing adjacent to the gallbladder. MRI liver mass protocol carmita mmended for confirmation
[2024-12-07] MEDS: SODIUM CHLORIDE 0.9% 1,000 ML IV ONE ×2 (11:55→13:35)
[2024-12-07] MEDS: HYDROmorphone HCL 2 MG/ML VL/or syr IV ONE (11:57)
[2024-12-07 12:14] VITALS: BP 152/89; PULSE 63; RESP 18; TEMP 98.9; O2SAT 93
[2024-12-07 12:30] VITALS: BP 133/79; PULSE 68; RESP 18; TEMP 98.4; O2SAT 95
[2024-12-07] MEDS: FOLIC ACID 1 MG TAB PO ONE (13:35)
[2024-12-07] MEDS: MULTIPLE VITAMINS W/ MINERALS TAB PO ONE (13:36)
[2024-12-07] MEDS: THIAMINE HCL 100 MG TAB PO ONE (13:37)
[2024-12-07 17:27] VITALS: BP 143/87; PULSE 65; TEMP 98.5; O2SAT 95
[2024-12-07 18:58] VITALS: PULSE 68; O2SAT 94
[2024-12-07 20:00] VITALS: RESP 16; O2SAT 97
[2024-12-07 21:00] VITALS: BP 136/96; PULSE 68; RESP 16; TEMP 98.9; O2SAT 94
[2024-12-07] MEDS: HYDROcodone-ACET 5/325MG TAB PO PRN (22:05)
[2024-12-08] VITALS (8 sets, daily range): BP systolic 109–126; BP diastolic 70–95; PULSE 53–68; RESP 16–20; TEMP 97.5–98.9; O2SAT 92–95
[2024-12-08 05:48] LABS: Hematocrit 44.0 % (41.0-53.0); Hemoglobin 15.0 g/dL (13.5-17.5); Mean Corpuscular Hemoglobin 34.3 pg (28.0-32.0); Mean Corpuscular Volume 100.4 fL (80.0-100.0); Nucleated Red Blood Cells % 0.1 %
[2024-12-08 06:16] LABS: Alanine Aminotransferase 36 U/L (7-40); Albumin 3.7 g/dL (3.2-4.8); Alkaline Phosphatase 89 U/L (46-116); Anion Gap 9 (5-15); BUN/Creatinine Ratio 7.5 (10.0-20.0); Bilirubin, Total 0.9 mg/dL (0.2-1.0); Carbon Dioxide 24 mmol/L (20-31); Potassium 3.7 mmol/L (3.5-5.1); Sodium 140 mmol/L (136-145); Total Protein 6.3 g/dL (5.7-8.2)
[2024-12-08 06:19] LABS: Blood Urea Nitrogen 7 mg/dL (9-23); Calcium 8.4 mg/dL (8.7-10.4); Chloride 107 mmol/L (98-107); Glucose 107 mg/dL (74-106)
--- NOTE | 2024-12-08 06:51 | DVHPNRES ---
Progress Note Date Seen: Dec 08, 2024 Resident Creating Document: CONOR RUSSO RESIDENT Medical Necessity Reason Pt with a Central, PICC or Fol: No Subjective Review of Systems History on admission: This is a 59 year old male without significant past medical history presented to the ER with chief complain of left lower abdominal pain. The pain is sudden in onset, started on Saturday, described as burning, 10/10, radiating to right side, progressively worsening, without aggravating or relieving factors. Pain is associated with subjective fever, feeling of fullness and shortness of breaths. Patient also complains of acid reflux in 1 episode of vomiting yesterday. Vomitus contained food content, denies hematemesis. He denies diarrhea, constipation, nausea, melena, hematemesis. Patient presented in the ER yesterday with similar complaints and went AMA, he returns today with worsening abdominal pain. Patient denies travel outside the country or state, denies eating from food truck, sick contacts. Patient has never underwent a colonoscopy. He does not follow with a PCP. Previous hospitalization: In 2022 for hernia repair surgery PMHx: No significant past medical history PSHx: Hernia repair surgery Family history: Family history of colon cancer in father, uncle Social history: Drinks 5 beers every day, last drink on Saturday Denies smoking, recreational drug use. Lives in house with family, full code, next to kin is . Home medication: No medications Allergic history: No known allergies ROS: Constitutional: Denies weight loss, fever and chills. HEENT: Denies changes in vision and hearing. Respiratory: Denies shortness of breath and cough Cardiovascular: Denies chest discomfort or palpitations GI: Denies abdominal pain, nausea, vomiting and diarrhea. : Denies dysuria and urinary frequency. Musculoskeletal: Denies myalgias and joint pain Skin: Denies rash and pruritus. Neurological: Denies dizziness, headache, vision or hearing problems Patient was examined at bedside today. Continues to complain of abdominal pain. Objective vital signs Vital Sign Date Time Temp Pulse Resp B/P (MAP) Pulse Ox O2 Delivery O2 Flow Rate FiO2 12/08/24 05:00 98.9 62 20 109/70 (83) 93 98.9 12/07/24 20:00 Room Air* 0 21 Total Intake and Output 12/07/24 12/07/24 12/08/24 15:00 23:00 07:00 Intake Total 100 ml Balance 100 ml medications Current Medications Medications Dose Ordered Sig/Adurey Route Start Time Stop Time Status Last Admin Dose Admin Acetaminophen/ Hydrocodone Bitart 1 tab Q4HP PRN PO 12/07/24 10:30 12/07/24 22:05 1 TAB Ondansetron HCl 4 mg Q4HP PRN IV 12/07/24 10:30 Docusate Sodium 100 mg BIDPRN PRN PO 12/07/24 10:30 Acetaminophen 650 mg Q6HP PRN PO 12/07/24 10:30 Nitroglycerin 0.4 mg Q5MINP PRN SL 12/07/24 10:30 Morphine Sulfate 2 mg Q30M PRN IV 12/07/24 10:30 Ceftriaxone Sodium 50 ml @ 100 mls/hr DAILY@09 IV 12/08/24 09:00 Metronidazole 100 ml @ 100 mls/hr Q8H IV 12/07/24 18:00 12/08/24 01:46 100 MLS/HR Thiamine HCl 100 mg DAILY PO 12/08/24 10:00 Folic Acid 1 mg DAILY PO 12/08/24 10:00 Multivitamins/ Minerals 1 tab DAILY PO 12/08/24 10:00 Lorazepam 1 mg Q2HP PRN IV 12/07/24 10:45 Examination General: Patient alert and oriented in person, place and time. Patient following commands. HEENT: Normocephalic, atraumatic, moist mucous membranes Respiratory/pulmonary: Clear lungs bilaterally, vesicular murmurs present in almost all lung florence, no associated crackles or wheezes. Cardiovascular: Normal heart sounds S1 and S2 with no associated murmurs Abdomen: Generalized abdominal tenderness, more pronounced in left lower quadrant and left flank Extremities: There is no peripheral edema present at the lower extremities. Peripheral Pulses: 3+ Radial (R). 3+ Radial (L). 3+ Dorsalis pedis (R). 3+ Dorsalis pedis(L) Skin: No rashes or pruritus, there is no sacral edema present at this time. Neurological: Intact cranial nerves with no focal neurologic deficits laboratory and microbiology Laboratory Tests 12/08/24 05:05 Test 12/08/24 05:05 Range/Units Serum Glucose 107 H 74-106 mg/dL Problem List/Assessment/Plan Problem List/Assessment/Plan Acute infectious gastroenteritis Acute intractable abdominal pain due to above Hepatic steatosis Transaminitis, ruled out Continue IV ceftriaxone, metronidazole Supportive management with IV fluid, pain medication, Protonix Liver ultrasound shows hepatic steatosis with focal sparing adjacent to gallbladder, MRI recommended CT abdomen shows small bowel wall thickening suggestive of enteritis, hepatic steatosis, cardiomegaly Patient currently NPO; advanced diet as tolerated MRI with IV contrast pending ETOH dependance CIWA score 2 Started on CIWA protocol; IV thiamine and folic acid ordered Monitor for alcohol withdrawal/ seizures Ativan as needed for alcohol withdrawal Cardiomegaly Chest x-ray done on 12/06/2024 shows no acute cardiopulmonary abnormality Continue clinical monitoring DIET: NPO; advance to clear liquid as tolerated DVT PROPHYLAXIS: Lovenox GI PROPHYLAXIS: Protonix CODE STATUS: Goals of care discussed with patient at bedside for more than 35 minutes. Full code DISPOSITION: Med/surge This medical document was created using an electronic medical record system with [employer] direct computerized dictation system. Although this document has been carefully reviewed, there may still be some phonetic and typographical errors. These areas are purely typographical due to imperfections of the software programs, and do not reflect any compromise in the patient's medical care. Patient's status and plan discussed with the patient. Case discussed with Dr. Aranda Plan discussed with: Patient, Other Date of Service: Dec 08, 2024 Billing Provider: GENEVA ARANDA MD Common Visit Codes: 37212-[id number] INP/OBS CARE(HIGH) Secondary Visit Codes: 85457-[id number] CARE PLAN 30 MINUTES CONOR RUSSO RESIDENT Dec 08, 2024 06:51 GENEVA ARANDA MD Dec 13, 2024 18:56
[2024-12-08] MEDS: MULTIPLE VITAMINS W/ MINERALS TAB PO SCH (09:19)
[2024-12-08] MEDS: FOLIC ACID 1 MG TAB PO SCH (09:19)
[2024-12-08] MEDS: THIAMINE HCL 100 MG TAB PO SCH (09:20)
[2024-12-08] MEDS ORDERED: THIAMINE 100mg/ml INJ (200mg/2ml VIAL) IV ONE (11:15)
[2024-12-08] MEDS ORDERED: FOLIC ACID 1 MG in D5W 5% 50 ML INJ ONE (11:15)
[2024-12-08] MEDS: GADOTERATE MEG 10 MMOL/20ml INJ (0.5MMOL/ml) IV ONE (13:35)
--- NOTE | 2024-12-08 16:41 | DVH ---
MRI Abdomen, without and with IV Contrast Exam Date: 12/08/2024 01:38 PM Comparison: US LIVER on DOS: 12/07/24, CT CT AB PEL WITH IV CON ONLY on DOS: 12/07/24, CT CT AB PEL W O CON-NO ORAL OR IV on DOS: 04/21/24 History: FOLLOW UP FROM ULTRASOUND Technique: Multisequence multiplanar MRI images were obtained of the abomen. Multiphasic imaging performed without and with intravenous contrast. Findings: Liver: Hepatomegaly, 16.3 cm craniocaudal. Mildly nodular hepatic contours may represent subtle yip es of hepatic cirrhosis. Hepatic steatosis. Few subcentimeter hepatic cysts are present. Spleen: Unremarkable. Pancreas: The pancreas is normal in appearance without focal lesions. Gallbladder and ducts: Gallbladder is normal in appearance. The cystic duct, right and left hepatic d ucts, common hepatic duct, and common bile ducts are unremarkable. The pancreatic duct is within nor mal limits. Adrenal glands: Unremarkable. Kidneys: Left kidney is unremarkable. Few right renal cysts are present measuring up to 3.6 cm in the upper pole. Visualized bowel: Grossly unremarkable. Vasculature: Unremarkable. Lymphadenopathy: No evidence for lymphadenopathy. Ascites: Absent. Musculoskeletal: Bone marrow signal is normal. IMPRESSION: Hepatomegaly with hepatic steatosis and subtle nodular hepatic contours which may represent changes o f hepatic cirrhosis. Few subcentimeter hepatic cysts. Few right renal cysts measuring up to 3.6 cm. No discrete or suspicious hepatic lesion is present. Area in question on ultrasound may represent an area of focal fatty sparing.
[2024-12-08] MEDS: PANTOPRAZOLE 40 MG/10 ML VIAL INJ IV ONE (17:44)
[2024-12-08] MEDS: ENOXAPARIN SOD 40 MG/0.4 ML SYRINGE SC ONE (17:45)
[2024-12-09 01:00] VITALS: BP 116/52; PULSE 60; RESP 17; TEMP 97.6; O2SAT 95
[2024-12-09 05:00] VITALS: BP 126/81; PULSE 65; RESP 17; TEMP 97.9; O2SAT 95
[2024-12-09 07:05] LABS: Nucleated Red Blood Cells % 0.1 %
[2024-12-09 07:07] LABS: Hematocrit 46.1 % (41.0-53.0); Hemoglobin 16.0 g/dL (13.5-17.5); Mean Corpuscular Hemoglobin 34.4 pg (28.0-32.0); Mean Corpuscular Volume 99.1 fL (80.0-100.0)
[2024-12-09 07:18] LABS: Alkaline Phosphatase 83 U/L (46-116); Anion Gap 10 (5-15); BUN/Creatinine Ratio 6.5 (10.0-20.0); Calcium 8.9 mg/dL (8.7-10.4); Carbon Dioxide 26 mmol/L (20-31); Chloride 103 mmol/L (98-107); Glucose 90 mg/dL (74-106); Potassium 3.6 mmol/L (3.5-5.1); Sodium 139 mmol/L (136-145); Total Protein 6.9 g/dL (5.7-8.2)
[2024-12-09 07:19] LABS: Alanine Aminotransferase 66 U/L (7-40); Albumin 4.0 g/dL (3.2-4.8); Blood Urea Nitrogen 6 mg/dL (9-23)
[2024-12-09 07:20] LABS: Bilirubin, Total 0.9 mg/dL (0.2-1.0)
[2024-12-09 08:00] VITALS: PULSE 56; RESP 17; O2SAT 94
[2024-12-09 08:40] VITALS: BP 118/87; PULSE 56; RESP 17; TEMP 97.6; O2SAT 94
[2024-12-09] MEDS: FOLIC ACID 1 MG in D5W 5% 50 ML INJ SCH (09:47)
[2024-12-09] MEDS: THIAMINE 100mg/ml INJ (200mg/2ml VIAL) IV SCH (09:48)
[2024-12-09] MEDS: PANTOPRAZOLE 40 MG/10 ML VIAL INJ IV SCH (09:52)
[2024-12-09] MEDS: ENOXAPARIN SOD 40 MG/0.4 ML SYRINGE SC SCH (09:57)
[2024-12-09 12:25] VITALS: BP 119/77; PULSE 56; RESP 18; TEMP 97.9; O2SAT 95
[2024-12-09] MEDS ORDERED: PANT40T PO (14:14)
[2024-12-09 15:18] VITALS: BP 118/87; PULSE 62; RESP 18; TEMP 97.8; O2SAT 94
--- NOTE | 2024-12-09 15:39 | DVHDSRES ---
Discharge Summary Date of Admission Resident Creating Document: CONOR RUSSO RESIDENT Dec 07, 2024 at 10:17 Date of Discharge: Dec 09, 2024 Labs/Diagnostic Data: Laboratory Results Test 12/09/24 06:13 12/08/24 18:26 12/08/24 05:05 White Blood Count 4.1 10^3/uL (4.4-10.8) Red Blood Count 4.65 10^6/uL (4.5-5.90) Hemoglobin 16.0 g/dL (13.5-17.5) Hematocrit 46.1 % (41.0-53.0) Mean Corpuscular Volume 99.1 fL (80.0-100.0) Mean Corpuscular Hemoglobin 34.4 pg (28.0-32.0) Mean Corpuscular Hemoglobin Concent 34.7 g/dL (32.0-36.0) Red Cell Distribution Width 12.9 % (11.8-14.3) Platelet Count 209 10^3/uL (140-450) Mean Platelet Volume 6.5 fL (6.9-10.8) Neutrophils (%) (Auto) 41.5 % (37.0-80.0) Lymphocytes (%) (Auto) 39.8 % (10.0-50.0) Monocytes (%) (Auto) 10.3 % (0.0-12.0) Eosinophils (%) (Auto) 7.5 % (0.0-7.0) Basophils (%) (Auto) 0.9 % (0.0-2.0) Neutrophils # (Auto) 1.7 10 ^3/uL (1.6-8.6) Lymphocytes # (Auto) 1.6 10 ^3/uL (0.4-5.4) Monocytes # (Auto) 0.4 10 ^3/uL (0-1.3) Eosinophils # (Auto) 0.3 10 ^3/uL (0-0.8) Basophils # (Auto) 0 10 ^3/uL (0-0.2) Nucleated Red Blood Cells 0.1 % Sodium Level 139 mmol/L (136-145) Potassium Level 3.6 mmol/L (3.5-5.1) Chloride Level 103 mmol/L (98-107) Carbon Dioxide Level 26 mmol/L (20-31) Anion Gap 10 (5-15) Blood Urea Nitrogen 6 mg/dL (9-23) Creatinine 0.93 mg/dL (0.700-1.30) Glomerular Filtration Rate Calc 96 mL/min (>90) BUN/Creatinine Ratio 6.5 (10.0-20.0) Serum Glucose 90 mg/dL (74-106) Calcium Level 8.9 mg/dL (8.7-10.4) Total Bilirubin 0.9 mg/dL (0.2-1.0) Aspartate Amino Transferase (AST) 62 U/L (13-40) Alanine Aminotransferase (ALT) 66 U/L (7-40) Alkaline Phosphatase 83 U/L (46-116) Total Protein 6.9 g/dL (5.7-8.2) Albumin 4.0 g/dL (3.2-4.8) Lactic Acid Level 0.9 mmol/L (0.4-2.0) Lipase 29 U/L (12-53) Thyroid Stimulating Hormone (TSH) 2.79 uIU/mL (0.55-4.78) Plasma/Serum Blood Alcohol < 3.0 mg/dL (<10) Other Laboratory Tests 12/09/24 06:13 Brief Hx & Hospital Course: History on admission: This is a 59 year old male without significant past medical history presented to the ER with chief complain of left lower abdominal pain. The pain is sudden in onset, started on Saturday, described as burning, 10/10, radiating to right side, progressively worsening, without aggravating or relieving factors. Pain is associated with subjective fever, feeling of fullness and shortness of breaths. Patient also complains of acid reflux in 1 episode of vomiting yesterday. Vomitus contained food content, denies hematemesis. He denies diarrhea, constipation, nausea, melena, hematemesis. Patient presented in the ER yesterday with similar complaints and went AMA, he returns today with worsening abdominal pain. Patient denies travel outside the country or state, denies eating from food truck, sick contacts. Patient has significant family history of colon cancer in father and uncle, never underwent a colonoscopy. He does not follow with a PCP. Brief hospital course: His initial labs revealed macrocytosis without anemia. Patient was started on supportive management with IV fluid, pain medication, Protonix, started on NPO diet. Recent CT abdomen shows small bowel wall thickening suggestive of enteritis, hepatic steatosis, cardiomegaly. Patient was started on CIWA protocol, IV thiamine and folic acid received. Liver ultrasound shows hepatic steatosis with focal sparing adjacent to gallbladder, MRI recommended. MRI with contrast revealed Hepatomegaly with hepatic steatosis and subtle nodular hepatic contours which may represent changes of hepatic cirrhosis, hepatic cysts, right renal cysts measuring up to 3.6 cm. Patient's diet was advanced to mechanical soft, patient does not tolerating p.o. diet. He is hemodynamically stable and will be discharged to home. Conditions treated during stay: Acute infectious gastroenteritis Acute intractable abdominal pain due to above Hepatic steatosis Hepatic cysts Renal cysts Early cirrhosis Transaminitis ETOH dependance Cardiomegaly Obesity class 2 Plan: Trial of Protonix 40 mg p.o. daily for 14 days Follow-up in discharge clinic in 1 week Advised establishing care with PCP and colonoscopy in outpatient clinic Operations or Procedures MRI Abdomen, without and with IV Contrast Exam Date: 12/08/2024 01:38 PM Comparison: US LIVER on DOS: 12/07/24, CT CT AB PEL WITH IV CON ONLY on DOS: 12/07/24, CT CT AB PEL WO CON-NO ORAL OR IV on DOS: 04/21/24 History: FOLLOW UP FROM ULTRASOUND Technique: Multisequence multiplanar MRI images were obtained of the abomen. Multiphasic imaging performed without and with intravenous contrast. Findings: Liver: Hepatomegaly, 16.3 cm craniocaudal. Mildly nodular hepatic contours may represent subtle changes of hepatic cirrhosis. Hepatic steatosis. Few subcentimeter hepatic cysts are present. Spleen: Unremarkable. Pancreas: The pancreas is normal in appearance without focal lesions. Gallbladder and ducts: Gallbladder is normal in appearance. The cystic duct, right and left hepatic ducts, common hepatic duct, and common bile ducts are unremarkable. The pancreatic duct is within normal limits. Adrenal glands: Unremarkable. Kidneys: Left kidney is unremarkable. Few right renal cysts are present measuring up to 3.6 cm in the upper pole. Visualized bowel: Grossly unremarkable. Vasculature: Unremarkable. Lymphadenopathy: No evidence for lymphadenopathy. Ascites: Absent. Musculoskeletal: Bone marrow signal is normal. IMPRESSION: Hepatomegaly with hepatic steatosis and subtle nodular hepatic contours which may represent changes of hepatic cirrhosis. Few subcentimeter hepatic cysts. Few right renal cysts measuring up to 3.6 cm. No discrete or suspicious hepatic lesion is present. Area in question on ultrasound may represent an area of focal fatty sparing. INDICATION: Hepatic steatosis. TECHNIQUE: Multiple real-time sonographic images were obtained of the right upper quadrant. COMPARISON: None FINDINGS: The liver demonstrates heterogeneous echotexture without focal mass lesions. The liver measures 17 cm. There is no intrahepatic or extrahepatic ductal dilatation. CBD not visualized The gallbladder is without evidence of stone or sludge. The gallbladder wall measures 0.2mm and is within normal limits. The right kidney measures 11 cm. The right kidney is normal in contour, size, and shape. The echogenicity is normal. There is no hydronephrosis. Left kidney measures 13 cm. The pancreas is not well visualized due to overlying bowel gas. IMPRESSION: No sonographic evidence of gallstones or acute cholecystitis. Hepatic steatosis with focal fatty sparing adjacent to the gallbladder. MRI liver mass protocol recommended for confirmation Condition at Discharge: Stable Final Diagnosis/Problems List Acute infectious gastroenteritis Acute intractable abdominal pain due to above Hepatic steatosis Hepatic cysts Renal cysts Early cirrhosis Transaminitis ETOH dependance Cardiomegaly Obesity class 2 Discharge Disposition: Home Discharge Instruct/Medications Diet: Regular Activity: No Restrictions, As Tolerated Follow Up/Referral: Please follow with PCP in 1 week Please follow-up in discharge clinic in 1 week Medications: As per EHR Scheduled Pantoprazole Sodium Sesquihydr (Pantoprazole Sodium), 40 MG PO DAILY Scheduled PRN Ondansetron Odt 4MG Tab (Zofran Po), 4 MG PO Q8HP PRN Ondansetron Odt 4MG Tab (Zofran Po), 4 MG PO TIDPRN PRN Discontinued Medications Ibuprofen Micronized (Motrin Tablet), 600 MG PO TID PRN Discharge Statement: "Patient was advised to return to the ER or call 911 if any headaches, dizziness, shortness of breath, chest pain, abdominal pain, bleeding, fevers, or worsening of medical condition. Patient was counseled about treatment plan, medications, possible side effects, patientverbalized understanding. All questions were answered to the best of my ability. This discharge took greater then 30 minutes in planning, reviewing documentation, counseling the patient, and discussing with other team members." ASSESSMENT ASSESSMENT Assessment Acute infectious gastroenteritis Acute intractable abdominal pain due to above Hepatic steatosis Transaminitis, ruled out ETOH dependance Cardiomegaly Date of Service: Dec 09, 2024 Billing Provider: GENEVA ROJAS MD Common Visit Codes: 01026-ONN/OBS DISCH DAY >30min CONOR RUSSO RESIDENT Dec 09, 2024 15:39 GENEVA ROJAS MD Dec 13, 2024 18:57
== END 2024-12-09 16:00 | disposition home or self-care (01) | DRG 249 ==
LOC: ER 07:44 → OVERFLOW 10:17 → WEST WING 10:21
PROVIDERS: ADMIT Internal Medicine Geriatric Medicine; ATTEND Internal Medicine Geriatric Medicine
DX: A09 Infectious gastroenteritis and colitis, unspecified (principal); K76.89 Other specified diseases of liver; R16.0 Hepatomegaly, not elsewhere classified; F10.20 Alcohol dependence, uncomplicated; E66.812 Obesity, class 2; D75.89 Other specified diseases of blood and blood-forming organs; K76.0 Fatty (change of) liver, not elsewhere classified; K21.9 Gastro-esophageal reflux disease without esophagitis; I51.7 Cardiomegaly; K70.30 Alcoholic cirrhosis of liver without ascites; N28.1 Cyst of kidney, acquired; Z80.0 Family history of malignant neoplasm of digestive organs; Z79.899 Other long term (current) drug therapy; Z68.35 Body mass index [BMI] 35.0-35.9, adult; Y90.9 Presence of alcohol in blood, level not specified
CPT/HCPCS: 36415; 36600; 71045; 74177; 74183; 76705; 80048; 80053; 80076; 80320; 81001; 82805; 83605; 83690; 84443; 84484; 85025; 87081; 93005; 96361; 96365; 96374; 96375; 99291; 99292; G0378; J2405; J2470; J3490; J7060